=== PATIENT | female | born 1965 | race Caucasian/White ===

== ENCOUNTER 2021-07-19 14:21 | Emergency (ER) | payer OTHER ==
--- NOTE | 2021-07-19 14:31 | ERPHSYRPT ---
- History of Present Illness Time Seen by Provider: 07/19/21 14:31 Source: patient Exam Limitations: no limitations Patient Subjective Stated Complaint: pt here for left arm numbness for 3-4 days now getting worse, was seen at [facility] for same thing on sunday and given a rx, denies any injury Triage Nursing Assessment: pt alert, resp easy, congested sounding cough, face mask in place, no swelling noted to left arm Physician History: This is a 55-year-old white female patient of Dr. Cavazos who is right-handed and presents with left shoulder pain of 3 to 4-day duration. Patient denies any acute traumatic injury or fall. Patient has never had anything like this before. The pain is substantial in the left shoulder with some numbness shooting down her left arm. She is neurologically intact. She denies having any type of chest pain. Patient was seen at [facility] in [facility] on the Sunday prior to this evaluation. They did a full work-up there including a negative chest x-ray, negative EKG for any acute issue and negative troponin levels. The does not appear to me based on reviewing the records, that the patient underwent a left shoulder x-ray. Patient is not on any medications and she has no known drug allergies. Occurred: days ago (3) Method of Injury: other (No injury) Severity of Pain-Max: moderate Severity of Pain-Current: moderate Extremities Pain Location: shoulder: left Modifying Factors: Improves With: movement Associated Symptoms: other (Sharp shooting pain with intermittent numbness down her left arm with movement) Allergies/Adverse Reactions: No Known Drug Allergies Allergy (Unverified 07/19/21 14:31) Home Medications: Diclofenac Sodium 50 mg [Voltaren 50 mg] 1 ea DAILY 07/19/21 [History] Lidocaine [Lidocaine Pain Relief] 1 ea DAILY 07/19/21 [History] Linaclotide [Linzess] 1 ea DAILY 07/19/21 [History] Meloxicam 1 ea DAILY 07/19/21 [History] Hx Influenza Vaccination/Date Given: No Hx Pneumococcal Vaccination/Date Given: No Immunizations Up to Date: Yes Travel Risk - International Travel Have you traveled outside of the country in past 3 weeks: No - Coronavirus Screening Are you exhibiting any of the following symptoms?: No Close contact with a COVID-19 positive Pt in past 14-21 Days: No - Vaccine Status Have you recieved a Covid-19 vaccination: Yes [employer]: Moderna - Vaccination Dates Date of 2cond Vaccination (if applicable): ? - Review of Systems Constitutional: No Symptoms Eyes: No Symptoms Ears, Nose, & Throat: No Symptoms Respiratory: No Symptoms Cardiac: No Symptoms Abdominal/Gastrointestinal: No Symptoms Genitourinary Symptoms: No Symptoms Musculoskeletal: Joint Pain (Left shoulder), No Fall, No Injury Skin: No Symptoms Neurological: No Symptoms Psychological: No Symptoms Endocrine: No Symptoms Hematologic/Lymphatic: No Symptoms Immunological/Allergic: No Symptoms All Other Systems: Reviewed and Negative - Past Medical History Pertinent Past Medical History: Yes Endocrine Medical History: Diabetes Type II - Past Surgical History Past Surgical History: Yes Gastrointestinal: Cholecystectomy Musculoskeletal: Orthopedic Surgery Female Surgical History: Other Other Surgical History: overies removed - Social History Smoking Status: Current every day smoker Exposure to second hand smoke: Yes Drug Use: none Patient Lives Alone: No - Female History Hx Last Menstrual Period: psot Hx Now: No - Nursing Vital Signs Nursing Vital Signs: Initial Vital Signs Pulse Rate 80 07/19/21 15:15 Respiratory Rate 18 07/19/21 15:15 Blood Pressure 153/98 07/19/21 15:15 O2 Sat by Pulse Oximetry 97 07/19/21 15:15 Pain Scale Pain Intensity 5 - Physical Exam General Appearance: mild distress, alert, anxiety, obese Eyes, Ears, Nose, Throat Exam: normal ENT inspection, moist mucous membranes Neck Exam: normal inspection, non-tender, supple, full range of motion Cardiovascular/Respiratory Exam: chest non-tender, normal breath sounds, regular rate/rhythm, heart sounds normal, no respiratory distress Abdominal Exam: non-tender, soft Back Exam: normal inspection, normal range of motion, No CVA tenderness, No vertebral tenderness Shoulder Exam: normal inspection (Left shoulder), no evidence of injury, normal ROM (However hurts to move the left shoulder), soft tissue tenderness (Left) Elbow/Forearm Exam: normal inspection, non-tender, no evidence of injury, normal ROM Wrist Exam: normal inspection, non-tender, no evidence of injury, normal ROM Hand Exam: normal inspection, non-tender, no evidence of injury, normal ROM Neuro/Tendon Exam: normal sensation, normal motor functions, normal tendon functions, responds to pain, no evidence tendon injury Mental Status Exam: alert, oriented x 3, cooperative Skin Exam: normal color, warm, dry SpO2 Interpretation: normal O2 Delivery: Room Air - Course Nursing assessment & vital signs reviewed: Yes EKG Interpreted by Me: RATE (84), Sinus Rhythm, NORMAL AXIS, NORMAL INTERVALS, NORMAL QRS, NORMAL ST-T, Other (No acute ischemic changes. There is no comparison EKG available.) Ordered Tests: Active Orders 24 hr Category Date Time Status EKG-ER Only STAT Care 07/19/21 15:14 Active SHOULDER Stat Exams 07/19/21 15:13 Taken TROPONIN Q3H Lab 07/19/21 15:27 Completed TROPONIN Q3H Lab 07/19/21 18:15 Ordered TROPONIN Q3H Lab 07/19/21 21:15 Ordered TROPONIN Q3H Lab 07/20/21 00:15 Ordered TROPONIN Q3H Lab 07/20/21 03:15 Ordered Medication Summary Discontinued Medications Generic Name Dose Route Start Last Admin Trade Name Freq PRN Reason Stop Dose Admin Methylprednisolone Sodium 0 mg 07/19/21 15:15 07/19/21 15:22 Succinate 125 mg/ Sterile IM 07/19/21 15:16 125 mg Water 2 ml STAT ONE Administration Hydromorphone HCl 1 mg 07/19/21 15:14 07/19/21 15:20 Hydromorphone 1 Mg/1ml Inj 1 Mg/Ml Syringe IM 07/19/21 15:15 1 mg STAT ONE Administration Hydromorphone HCl Confirm 07/19/21 15:19 Hydromorphone 1 Mg/1ml Inj 1 Mg/Ml Syringe Administered 07/19/21 15:20 Dose 1 mg .ROUTE .STK-MED ONE Methylprednisolone Sodium Succinate Confirm 07/19/21 15:19 Methylprednis Sod Succ 125 Mg/2 Ml Vial Administered 07/19/21 15:20 Dose 125 mg .ROUTE .STK-MED ONE Ondansetron HCl 4 mg 07/19/21 15:15 07/19/21 15:20 Zofran 4 Mg/Udtablet Orally Disintegrating PO 07/19/21 15:16 4 mg STAT ONE Administration Ondansetron HCl Confirm 07/19/21 15:18 Zofran 4 Mg/Udtablet Orally Disintegrating Administered 07/19/21 15:19 Dose 4 mg .ROUTE .STK-MED ONE Orphenadrine Citrate 60 mg 07/19/21 15:15 07/19/21 15:20 Orphenadrine Citrate 60 Mg/2 Ml Amp IM 07/19/21 15:16 60 mg STAT ONE Administration Orphenadrine Citrate Confirm 07/19/21 15:19 Orphenadrine Citrate 60 Mg/2 Ml Amp Administered 07/19/21 15:20 Dose 60 mg .ROUTE .STK-MED ONE Lab/Rad Data: Laboratory Results 07/19/21 Range/Units 15:27 Troponin I < 0.012 (0.000-0.034) ng/mL - Progress Progress Note: 07/19/21 16:09 X-ray left shoulder shows no acute fracture or dislocation. Counseled pt/family regarding: lab results, diagnosis, need for follow-up, rad results - Departure Departure Disposition: Home Clinical Impression: Left shoulder pain Condition: Stable Critical Care Time: No Referrals: CASSY CAVAZOS MD [Primary Care Provider] - Follow up/PCP as directed Additional Instructions: Stop your meloxicam and Voltaren medication while taking the prednisone. Call your primary care doctor later today or in the morning to make arrange for follow-up appointment including arrangements for an outpatient MRI if indicated. Prescriptions: Oxycodone HCl/Acetaminophen [Percocet 5-325 mg Tablet] 1 each PO Q8H PRN PRN #6 tablet MDD 3 PRN Reason: Pain Cyclobenzaprine HCl 10 mg [Cyclobenzaprine 10 MG] 10 mg PO TID #10 tablet Prednisone 10 mg [Deltasone 10 mg] 10 mg PO TID #12 tablet
[2021-07-19] MEDS ORDERED: Hydromorphone 1 mg/ml Injection IM ONE (15:14)
[2021-07-19] MEDS ORDERED: solu-MEDROL 125 MG, Sterile H2O 10 ml 2 ML IM ONE ×2 (15:15)
[2021-07-19] MEDS ORDERED: ZOFRAN ODT 4 MG PO ONE (15:15)
[2021-07-19] MEDS ORDERED: Norflex 60 MG/2 ML IM ONE (15:15)
[2021-07-19] MEDS ORDERED: ZOFRAN ODT 4 MG ONE (15:18)
[2021-07-19] MEDS ORDERED: Hydromorphone 1 mg/ml Injection ONE (15:19)
[2021-07-19] MEDS ORDERED: Norflex 60 MG/2 ML ONE (15:19)
[2021-07-19] MEDS ORDERED: solu-MEDROL ONE (15:19)
[2021-07-19 15:44] VITALS: O2SAT 97
[2021-07-19 16:07] VITALS: BP 160/108; PULSE 84
--- NOTE | 2021-07-19 16:24 | XRAY ---
Indication: Pain. Comparison: None 3 portable views left shoulder demonstrates mild osteopenia and minimal AC degenerative arthropathy. No other bony, articular, or soft tissue abnormalities.
== END 2021-07-19 16:17 | disposition home or self-care (01) ==
LOC: ED 14:21
DX: M25.512 Pain in left shoulder (principal); E11.8 Type 2 diabetes mellitus with unspecified complications; Z72.0 Tobacco use; Z79.891 Long term (current) use of opiate analgesic
CPT/HCPCS: 36415; 73030; 84484; 93005; 96372; 99284; J1170; J2360; J2930; Q0162